=== PATIENT | female | born 1990 | race Hispanic/Latino ===

== ENCOUNTER 2021-09-29 10:55 | Day surgery (SDC) | payer OTHER ==
[~2021-09-29] VITALS: Ht 152.4 cm; Wt 69.4 kg
[~2021-09-29 10:55] MED LIST: ALIG4CAP PO; OMEP-173 PO
[2021-09-29] MEDS ORDERED: fentaNYL 100 MCG/2 ML INJECTION As Ordered ONE (11:40)
[2021-09-29] MEDS ORDERED: propofoL 500 MG/50 ML VIAL As Ordered ONE (11:40)
[2021-09-29] MEDS ORDERED: LIDOCAINE 2% 100MG/5ML SDV (FOR ANES.) As Ordered ONE (11:40)
[2021-09-29 13:50] VITALS: BP 104/63
[2021-09-29] MEDS ORDERED: NS 1,000 ML IV ONE (16:15)
== END 2021-09-29 14:02 | disposition home or self-care (01) ==
LOC: M OPP 10:55
PROVIDERS: ATTEND Internal Medicine Gastroenterology
DX: R19.4 Change in bowel habit (principal); R10.84 Generalized abdominal pain; K31.89 Other diseases of stomach and duodenum; R11.0 Nausea; Z80.0 Family history of malignant neoplasm of digestive organs; Z80.3 Family history of malignant neoplasm of breast; Z91.018 Allergy to other foods
CPT/HCPCS: 43239; 45378; 88305; J3010